=== PATIENT | female | born 1965 | race African-American/Black ===

== ENCOUNTER 2018-06-19 11:39 | Emergency (ER) | payer OTHER ==
[2018-06-19] MEDS ORDERED: FAMOTIDINE 20 MG TAB ONE (13:13)
[2018-06-19] MEDS ORDERED: METHYLPREDNISOLONE 125 MG INJ ONE (13:13)
--- NOTE | 2018-06-19 13:34 | ER ---
Nurse's Notes [facility] Name: Milli Palomares Age: 53 yrs Sex: Female : 1965 Arrival Date: 06/19/2018 Time: 11:40 Bed 13 Private MD: Diagnosis: Localized swelling, mass and lump, unspecified-upper lip Presentation: 06/19 11:51 Presenting complaint: Patient states: In the past 2 years I have had 5 episodes where la1 my upper lip swells up badly, pt states this episode started yesterday, has taken benadryl at home. airway patent, speech clear, respirations even and unlabored. Transition of care: patient was not received from another setting of care. Onset: The symptoms/episode began/occurred yesterday. Anaphylaxis evaluation, no signs or symptoms of anaphylaxis were noted. Onset of symptoms was June 19, 2018. Risk Assessment: Do you want to hurt yourself or someone else? Patient reports no desire to harm self or others. Initial Sepsis Screen: Does the patient meet any 2 criteria? No. Patient's initial sepsis screen is negative. Does the patient have a suspected source of infection? No. Patient's initial sepsis screen is negative. Care prior to arrival: None. 11:51 Method Of Arrival: Ambulatory la1 11:51 Acuity: GREGG 3 la1 11:53 Note Pt reports she has not taken her BP meds this morning and she always has high BP la1 when she is at the doctor, denies SOB, CP, DIAZ, confusion, dizziness. Historical: - Allergies: 11:52 No Known Allergies; la1 - PMHx: 11:52 Hypertension; la1 - Immunization history:: Adult Immunizations up to date. - Social history:: Smoking status: Patient/guardian denies using tobacco. - Ebola Screening: : No symptoms or risks identified at this time. Screenin:00 Abuse screen: Denies threats or abuse. Nutritional screening: No deficits noted. em Tuberculosis screening: No symptoms or risk factors identified. Fall Risk None identified. Assessment: 13:00 General: Appears in no apparent distress. comfortable, Behavior is calm, cooperative, em reports she is allergic to some medication, denies SOB. Pain: Denies pain. Neuro: Level of Consciousness is awake, alert, obeys commands, Oriented to person, place, time, situation. Cardiovascular: Heart tones S1 S2 present Capillary refill < 3 seconds Patient's skin is warm and dry. Respiratory: Airway is patent Respiratory effort is even, unlabored, Breath sounds are clear bilaterally. Denies shortness of breath labored breathing. Derm: Skin is intact, is healthy with good turgor, Skin is pink, warm \T\ dry. Musculoskeletal: Swelling present in mouth and upper lip. 13:15 Reassessment: I agree with previous assessment. hb Vital Signs: 11:52 BP 170 / 112; Pulse 103; Resp 16; Temp 97.6; Pulse Ox 98% on R/A; Weight 89.81 kg; la1 Height 5 ft. 3 in. (160.02 cm); 13:13 BP 171 / 105; Pulse 97; Resp 20; Pulse Ox 99% on R/A; Pain 0/10; em 11:52 Body Mass Index 35.07 (89.81 kg, 160.02 cm) la1 13:13 reports she has not taken her BP meds em ED Course: 11:40 Patient arrived in ED. as 11:52 Triage completed. la1 11:53 Arm band placed on right wrist. la1 12:36 Jolie Garcia FNP-C [facility]. kb 12:36 Claudy Norwood MD is Attending Physician. kb 12:44 Markus Vincent LVN is Primary Nurse. em 13:00 Patient has correct armband on for positive identification. Placed in gown. Bed in low em position. Call light in reach. Adult w/ patient. Pulse ox on. NIBP on. 13:55 No provider procedures requiring assistance completed. Patient did not have IV access em during this emergency room visit. Administered Medications: 13:10 Drug: SOLU-Medrol 125 mg Route: IM; Site: right gluteus; em 13:57 Follow up: Response: No adverse reaction em 13:10 Drug: Pepcid 20 mg Route: PO; em 13:57 Follow up: Response: No adverse reaction em Outcome: 13:33 Discharge ordered by . kb 13:55 Discharged to home ambulatory, with family. em 13:55 Condition: good 13:55 Discharge instructions given to patient, Instructed on discharge instructions, follow up and referral plans. medication usage, Demonstrated understanding of instructions, follow-up care, medications, Prescriptions given X 2. 13:58 Patient left the ED. em Signatures: Jolie Garcia, MARIANNA-C DIE CAST SUPERVISOR-Ckb Markus Vincent, LOOM INSPECTOR LOOM INSPECTOR em Laila Colin Lee RN RN la1 Joyce Rojas RN RN hb Corrections: (The following items were deleted from the chart) 13:58 13:13 BP 171 / 105; Pulse 97bpm; Resp 20bpm; Pulse Ox 99% RA; Pain 0/10; em em
--- NOTE | 2018-06-19 13:34 | EDPHYS ---
Physician Documentation [facility] Name: Milli Palomares Age: 53 yrs Sex: Female : 1965 Arrival Date: 06/19/2018 Time: 11:40 Bed 13 Private MD: ED Physician Claudy Norwood HPI: 06/19 13:26 This 53 yrs old Black Female presents to ER via Ambulatory with complaints of Lips kb Swelling, Allergic Reaction. 13:30 The patient presents with swelling of the lips. Onset: The symptoms/episode kb began/occurred yesterday. Associated signs and symptoms: Pertinent positives: swelling, Pertinent negatives: abdominal pain, Altered mental status chest pain, dysphagia, fever, headache, hives, Light headed nausea, rash, shortness of breath, Syncope vomiting. Possible causes: The patient has no known obvious cause for the symptoms. At home the patient or guardian has treated the symptoms with Benadryl. Severity of symptoms: At their worst the symptoms were moderate in the emergency department the symptoms are unchanged. The patient has experienced similar episodes in the past, several times. The patient has not recently seen a physician. Pt reports swelling to upper lip that started last night. States this has happened several times in the past and she doesn' t know what causes it. STates she normally takes benadryl and ibuprofen and it goes away, but last times she had to get a steroid shot from her PCP. Historical: - Allergies: 11:52 No Known Allergies; la1 - PMHx: 11:52 Hypertension; la1 - Immunization history:: Adult Immunizations up to date. - Social history:: Smoking status: Patient/guardian denies using tobacco. - Ebola Screening: : No symptoms or risks identified at this time. ROS: 13:25 Constitutional: Negative for fever, chills, and weight loss, Cardiovascular: Negative kb for chest pain, palpitations, and edema, Respiratory: Negative for shortness of breath, cough, wheezing, and pleuritic chest pain, Abdomen/GI: Negative for abdominal pain, nausea, vomiting, diarrhea, and constipation, MS/Extremity: Negative for injury and deformity, Neuro: Negative for headache, weakness, numbness, tingling, and seizure. 13:25 Skin: Positive for swelling, of the upper lip. Exam: 13:25 Constitutional: This is a well developed, well nourished patient who is awake, alert, kb and in no acute distress. Head/Face: Normocephalic, atraumatic. Chest/axilla: Normal chest wall appearance and motion. Nontender with no deformity. No lesions are appreciated. Cardiovascular: Regular rate and rhythm with a normal S1 and S2. No gallops, murmurs, or rubs. Normal PMI, no JVD. No pulse deficits. Respiratory: Lungs have equal breath sounds bilaterally, clear to auscultation and percussion. No rales, rhonchi or wheezes noted. No increased work of breathing, no retractions or nasal flaring. Abdomen/GI: Soft, non-tender, with normal bowel sounds. No distension or tympany. No guarding or rebound. No evidence of tenderness throughout. Back: No spinal tenderness. No costovertebral tenderness. Full range of motion. MS/ Extremity: Pulses equal, no cyanosis. Neurovascular intact. Full, normal range of motion. Neuro: Awake and alert, GCS 15, oriented to person, place, time, and situation. Cranial nerves II-XII grossly intact. Motor strength 5/5 in all extremities. Sensory grossly intact. Cerebellar exam normal. Normal gait. 13:25 Skin: Appearance: normal except for affected area, swelling, noted on the upper lip, that are moderate. Vital Signs: 11:52 BP 170 / 112; Pulse 103; Resp 16; Temp 97.6; Pulse Ox 98% on R/A; Weight 89.81 kg; la1 Height 5 ft. 3 in. (160.02 cm); 13:13 BP 171 / 105; Pulse 97; Resp 20; Pulse Ox 99% on R/A; Pain 0/10; em 11:52 Body Mass Index 35.07 (89.81 kg, 160.02 cm) la1 13:13 reports she has not taken her BP meds em MDM: 12:37 Patient medically screened. kb 13:24 Data reviewed: vital signs, nurses notes. Data interpreted: Pulse oximetry: on room air kb is 99 %. Interpretation: normal. Counseling: I had a detailed discussion with the patient and/or guardian regarding: the historical points, exam findings, and any diagnostic results supporting the discharge/admit diagnosis, the need for outpatient follow up, a family practitioner, to return to the emergency department if symptoms worsen or persist or if there are any questions or concerns that arise at home. Administered Medications: 13:10 Drug: SOLU-Medrol 125 mg Route: IM; Site: right gluteus; em 13:57 Follow up: Response: No adverse reaction em 13:10 Drug: Pepcid 20 mg Route: PO; em 13:57 Follow up: Response: No adverse reaction em Disposition: 06/19/18 13:33 Discharged to Home. Impression: Localized swelling, mass and lump, unspecified - upper lip. - Condition is Stable. - Discharge Instructions: Angioedema, [id number]. - Prescriptions for Pepcid 20 mg Oral Tablet - take 1 tablet by ORAL route every 12 hours for 5 days; 10 tablet. Prednisone 20 mg Oral Tablet - take 1 tablet by ORAL route once daily for 5 days; 5 tablet. - Medication Reconciliation Form, Thank You Letter, Antibiotic Education, Prescription Opioid Use form. - Follow up: Emergency Department; When: As needed; Reason: Worsening of condition. Follow up: Private Physician; When: 2 - 3 days; Reason: Recheck today's complaints, Continuance of care, Re-evaluation by your physician. Addendum: 06/21/2018 07:41 Co-signature as Attending Physician, Claudy Norwood MD I agree with the assessment and c nath plan of care. Signatures: Jolie Garcia, EFFICIENCY MINER BLASTING-C EFFICIENCY MINER BLASTING-Ckb Claudy Norwood MD MD cha Munoz, Edgar, UNINDENTURED APPRENTICE UNINDENTURED APPRENTICE em Baron Elizabeth RN RN la1 Corrections: (The following items were deleted from the chart) 06/19 13:34 13:33 06/19/2018 13:33 Discharged to Home. Impression: Localized swelling, mass and kb lump, unspecified - upper lip. Condition is Stable. Forms are Medication Reconciliation Form, Thank You Letter, Antibiotic Education, Prescription Opioid Use. Follow up: Emergency Department; When: As needed; Reason: Worsening of condition. Follow up: Private Physician; When: 2 - 3 days; Reason: Recheck today's complaints, Continuance of care, Re-evaluation by your physician. kb 13:58 13:34 06/19/2018 13:33 Discharged to Home. Impression: Localized swelling, mass and em lump, unspecified - upper lip. Condition is Stable. Discharge Instructions: Angioedema, [id number]. Forms are Medication Reconciliation Form, Thank You Letter, Antibiotic Education, Prescription Opioid Use. Follow up: Emergency Department; When: As needed; Reason: Worsening of condition. Follow up: Private Physician; When: 2 - 3 days; Reason: Recheck today's complaints, Continuance of care, Re-evaluation by your physician. kb
== END 2018-06-19 13:58 | disposition home or self-care (01) ==
LOC: ER 11:39
DX: R22.9 Localized swelling, mass and lump, unspecified (principal); I10 Essential (primary) hypertension
CPT/HCPCS: 96372; 99283; J2930

== ENCOUNTER 2023-07-06 12:52 | Emergency (ER) | payer OTHER ==
--- OUTSIDE RECORDS SUMMARY | 2023-07-06 12:55 | XMS REPORT | Clinical Summary ---
Author Name Unknown Organization [facility] [place] Address [address] [place] [address] Care Team Providers Care Maintenance Inspector Name Role Phone Rudy López MD Unavailable [phone] Simone Colon MD Unavailable + [phone] Gabriele Yoder Unavailable Social History Tobacco Use Types Packs/Day Years Used Date Smoking Tobacco: Never Assessed Sex and Gender Information Value Date Recorded Sex Assigned at Not on file Gender Identity Not on file Sexual Orientation Not on file Job Start Date Occupation Industry Not on file Not on file Not on file Plan of Treatment Not on file Care Teams Maintenance Inspector Relationship Specialty Start Date End Date Rudy López MD [address] [facility] [address] [place] [address] PCP - External Referring Hematology and Oncology 04/22/21 Simone Colon MD [facility] [address] [id number] PCP - External Primary Care Provider Family Practice 04/22/21 Gabriele Yoder [address] [place] [address] , [place] [address] PCP - External Follow Up B Nephrology 04/22/21
[2023-07-06] MEDS ORDERED: ONDANSETRON 4 MG/2 ML VIAL ONE (14:34)
[2023-07-06] MEDS ORDERED: FLEET ENEMA ADULT PR ONE (14:35)
[2023-07-06 15:10] LABS: Absolute Eosinophils 0.2 K/uL (0-0.5); Absolute Monocytes 0.7 K/uL (0.1-1.3); Basophils % 0.5 % (0-1.3); Eosinophils % 2.4 % (0-4.4); Hematocrit 26.8 % (36.0-45.0); Hemoglobin 8.2 g/dL (12.0-15.0); Lymphocytes % 13.8 % (15.3-44.8); MCH 24.8 pg (27.0-35.0); MCHC 30.4 g/dL (32.0-36.0); MCV 81.7 fL (80-100); MPV 7.6 fL (7.6-11.3); Monocytes % 10.8 % (3.3-12.3); Neutrophils % 72.5 % (41.7-73.7); Nucleated Red Blood Cells % 0.1 % (0-0); Platelets 250 thou/uL (152-406); RBC Red Blood Cell Count 3.28 M/uL (3.86-4.86); Red Cell Distribution Width 18.8 % (12.1-15.2)
[2023-07-06 15:25] LABS: Albumin 2.9 g/dL (3.4-5.0); Albumin/Globulin Ratio 0.6 (1.1-1.8); Anion Gap 10.3 mEq/L (5.0-15.0); Bilirubin Total 0.7 mg/dL (0.2-1.0); Potassium 4.3 mEq/L (3.5-5.1); Protein, Total 7.9 g/dL (6.4-8.2)
--- NOTE | 2023-07-06 16:08 | RAD REPORT ---
EXAM DESCRIPTION: CT - Abdomen Pelvis Wo Contrast - 07/06/2023 4:00 pm CLINICAL HISTORY: Abdominal pain. Abd pain;Constipation COMPARISON: No comparisons TECHNIQUE: CT imaging of the abdomen and pelvis was performed without contrast. Solid organ, bowel a nd vascular assessment is limited due to lack of IV and oral contrast. All CT scans are performed using dose optimization technique as appropriate and may include automated exposure control or mA/KV adjustment according to patient size. FINDINGS: The lower lung cook are clear. There are multiple large masses in the abdomen. The mass is superior to also be within the liver pare nchyma or significantly compressing the liver parenchyma. This large and mass appears to have cystic or necrotic internal components and measures 27 x 21 centimeters. No bowel obstruction.No gross solid organ findings although internal anatomy distorted. IMPRESSION: Very large almost 30 centimeter mass in the abdomen superiorly nonspecific but likely ma lignancy. There is some suggestion of the mass highly compressing or invading the right lobe of the l iver. A limited non-contrast examination was performed as detailed.
--- NOTE | 2023-07-06 17:35 | ER ---
Nurse's Notes [facility] Name: Milli Palomares Age: 58 yrs Sex: Female : 1965 Arrival Date: 07/06/2023 Time: 12:52 Bed 18 Private MD: Diagnosis: Abdominal tumor;Anemia, unspecified Presentation: 07/05 13:19 Chief complaint: Patient states: has acid reflux, indigestion, back pain. Has taken ko1 miralax, exlax, lactulose, and hasnt had a BM since last thursday. Coronavirus screen: At this time, the client does not indicate any symptoms associated with coronavirus-19. Ebola Screen: No symptoms or risks identified at this time. Initial Sepsis Screen: Does the patient meet any 2 criteria? No. Patient's initial sepsis screen is negative. Does the patient have a suspected source of infection? No. Patient's initial sepsis screen is negative. Risk Assessment: Do you want to hurt yourself or someone else? Patient reports no desire to harm self or others. Onset of symptoms is unknown. 13:19 Method Of Arrival: Ambulatory ko1 13:19 Acuity: GREGG 4 ko1 Triage Assessment: 13:24 General: Appears in no apparent distress. Behavior is calm, cooperative, appropriate ko1 for age. Pain: Complains of pain in abdomen. GI: Reports lower abdominal pain, constipation. Historical: - PMHx: 13:24 Hypertension; ko1 - Immunization history:: Adult Immunizations unknown. - Infectious Disease History:: Denies. - Social history:: Smoking status: Patient denies any tobacco usage or history of. Screenin:25 [facility] ED Fall Risk Assessment (Adult) History of falling in the last 3 months, ph including since admission No falls in past 3 months (0 pts). Abuse screen: Denies threats or abuse. Denies injuries from another. Nutritional screening: No deficits noted. Tuberculosis screening: No symptoms or risk factors identified. Assessment: 14:30 General: Appears in no apparent distress. Behavior is calm, cooperative. Pain: ph Complains of pain in back. Neuro: Level of Consciousness is awake, alert, obeys commands, Oriented to person, place, time, situation. Cardiovascular: Capillary refill < 3 seconds in bilateral fingers. Respiratory: Airway is patent Respiratory effort is even, unlabored. GI: Reports constipation, nausea. Derm: Skin is pink, warm \T\ dry. 16:50 Reassessment: Called Dr. Mike Brown at [phone], pt's oncologist, staff aa5 states he will call back to speak to Dr. Stanford. . 18:00 Reassessment: D/C pending disc of CT for pt to take to oncologist. ph Vital Signs: 13:19 BP 129 / 87; Pulse 102; Resp 18; Temp 97; Pulse Ox 100% ; ko1 16:29 BP 122 / 86; Pulse 94; Resp 18; Pulse Ox 99% on R/A; ph 18:00 BP 118 / 72; Pulse 81; Resp 18; Temp 97.9; Pulse Ox 100% on R/A; ph ED Course: 12:55 Patient arrived in ED. mg5 13:09 Dewayne Stanford DO is Attending Physician. ms3 13:24 Triage completed. ko1 13:24 Arm band placed on right wrist. Patient placed in waiting room, Patient notified of ko1 wait time. 13:47 Alma Andrade, RN is Primary Nurse. ph 14:50 Inserted saline lock: 20 gauge in right antecubital area, using aseptic technique. rs5 Blood collected. 16:02 Abdomen In Process Unspecified. EDMS 16:29 Patient has correct armband on for positive identification. Bed in low position. Call ph light in reach. Side rails up X 1. 18:15 No provider procedures requiring assistance completed. IV discontinued, intact, ph bleeding controlled, No redness/swelling at site. Pressure dressing applied. Administered Medications: 15:04 Drug: Ondansetron IVP 4 mg IVP once; over 2 minutes Route: IVP; Site: left antecubital; rs5 15:30 Follow up: Response: No adverse reaction ph 19:15 Not Given (Other Intervention Used): fleet [id number] ml WI once; may repeat once ph Medication: 15:25 VIS not applicable for this client. ph Outcome: 17:34 Discharge ordered by . ms3 19:05 Patient left the ED. ph 19:05 Discharged to home ambulatory, with significant other, ph 19:05 Condition: good 19:05 Discharge instructions given to patient, significant other, Instructed on discharge instructions, follow up and referral plans. Demonstrated understanding of instructions, follow-up care, Signatures: Dispatcher [employer] Danette Raymundo, RN RN aa5 Alma Andrade RN RN Dewayne Stanford, DO CORRALES ms3 Tawana Borja RN RN ko1 Christian Hayes RN RN rs5 Esther Ge 5
--- NOTE | 2023-07-06 17:35 | EDPHYS ---
Physician Documentation [facility] Name: Milli Palomares Age: 58 yrs Sex: Female : 1965 Arrival Date: 07/06/2023 Time: 12:52 Bed 18 Private MD: ED Physician Dewayne Stanford HPI: 07/05 15:34 This 58 yrs old Black Female presents to ER via Ambulatory with complaints of ms3 Constipation, Pain. 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 emergency department for no bowel movement for 5 days. Patient states she has taken Ex-Lax, MiraLAX, lactulose without a bowel movement. Patient endorses lower abdominal pain over the last 5 days as well. Patient states her discomfort is an 8/10. Historical: - PMHx: 13:24 Hypertension; ko1 - Immunization history:: Adult Immunizations unknown. - Infectious Disease History:: Denies. - Social history:: Smoking status: Patient denies any tobacco usage or history of. ROS: 15:36 Constitutional: Negative for fever, and chills. Cardiovascular: Negative for chest ms3 pain, and palpitations. Respiratory: Negative for shortness of breath, cough, wheezing, and pleuritic chest pain, 15:36 MS/Extremity: Negative for injury and deformity, Skin: Negative for injury, rash, and discoloration, 15:36 Abdomen/GI: Positive for abdominal pain, constipation, Exam: 15:36 Constitutional: This is a well developed, well nourished patient who is awake, alert, ms3 and in no acute distress. Neck: Trachea midline, no cervical lymphadenopathy. Supple, full range of motion without nuchal rigidity, or vertebral point tenderness. No Meningismus. Chest/axilla: Normal chest wall appearance and motion. Nontender with no deformity. Cardiovascular: Regular rate and rhythm with a normal S1 and S2. No gallops, murmurs, or rubs. Normal PMI, no JVD. No pulse deficits. Respiratory: Lungs have equal breath sounds bilaterally, clear to auscultation and percussion. No rales, rhonchi or wheezes noted. No increased work of breathing, no retractions or nasal flaring. Abdomen/GI: Soft, non-tender, with normal bowel sounds. No distension or tympany. No guarding or rebound. No evidence of tenderness throughout. Skin: Warm, dry with normal turgor. Normal color with no rashes, no lesions, and no evidence of cellulitis. MS/ Extremity: Pulses equal, no cyanosis. Neurovascular intact. Full, normal range of motion. Vital Signs: 13:19 BP 129 / 87; Pulse 102; Resp 18; Temp 97; Pulse Ox 100% ; ko1 16:29 BP 122 / 86; Pulse 94; Resp 18; Pulse Ox 99% on R/A; ph 18:00 BP 118 / 72; Pulse 81; Resp 18; Temp 97.9; Pulse Ox 100% on R/A; ph MDM: 13:27 Patient medically screened. ms3 15:36 Differential diagnosis: diverticulitis, non-specific abd pain, Constipation. ms3 17:35 Data reviewed: vital signs, nurses notes, lab test result(s), radiologic studies, and ms3 as a result, I will discharge patient. Consideration of Admission/Observation Discussed transfer with patient. Patient states she has a known large tumor and is able to tolerate po at this time.. Independent interpretation of the following test(s) in the Emergency Department CT Scan: My interpretation is CT scan images reviewed do not reveal constipation. Large tumor abutting liver present.. Historians other than the Patient: Spouse/Significant Other: Patient's . 17:41 Care significantly affected by the following chronic conditions: Hypertension, GIST. ED ms3 course: Dr Trevor Villafuerte pageradhika. Discussed transfer with patient and patient states she is comfortable being discharged home. Patient is tolerating p.o. at this time, alert and orient x 4, no apparent distress, nontoxic-appearing, speaking full sentences. Patient to follow-up with Dr. Villafuerte as in 1 to 2 days. Patient understands and agrees with plan. All questions were answered. Return precautions discussed include worsening symptoms, or any other concerns.. 07/05 13:27 Order name: CBC with Diff; Complete Time: 15:34 ms3 07/05 13:27 Order name: CMP; Complete Time: 15:34 ms3 07/05 13:27 Order name: Lipase; Complete Time: 15:34 ms3 07/05 15:51 Order name: Abdomen ; Complete Time: 16:31 EDMS 07/05 13:27 Order name: IV Saline Lock; Complete Time: 15:39 ms3 07/05 13:27 Order name: Labs collected and sent; Complete Time: 15:39 ms3 Administered Medications: 15:04 Drug: Ondansetron IVP 4 mg IVP once; over 2 minutes Route: IVP; Site: left antecubital; rs5 15:30 Follow up: Response: No adverse reaction ph 19:15 Not Given (Other Intervention Used): fleet [id number] ml [place] once; may repeat once ph Disposition Summary: 07/06/23 17:34 Discharge Ordered Notes: Location: Home ms3 Condition: Stable ms3 Diagnosis - Abdominal tumor ms3 - Anemia, unspecified ms3 Followup: ms3 - With: Private Physician - When: 1 - 2 days - Reason: Recheck today's complaints Discharge Instructions: - Discharge Summary Sheet ms3 - Anemia ms3 Forms: - Medication Reconciliation Form ms3 - Antibiotic Education ms3 - Prescription Opioid Use ms3 - Patient Portal Instructions ms3 - Leadership Thank You Letter ms3 Signatures: Dispatcher [employer] EDDewayne Benjamin DO DO ms3 Tawana Borja, RN RN ko1 Christian Hayes RN RN rs5 Alma Andrade RN ph Corrections: (The following items were deleted from the chart) 15:51 13:28 Abdomen Pelvis W Con+CT.RAD.BRZ ordered. EDMS EDMS
[2023-07-06 19:25] VITALS: TEMP 97
[2023-07-06 19:56] VITALS: BP 122/86; O2SAT 99
== END 2023-07-06 19:05 | disposition home or self-care (01) ==
LOC: ER 12:52
DX: R19.09 Other intra-abdominal and pelvic swelling, mass and lump (principal); D64.9 Anemia, unspecified; I10 Essential (primary) hypertension
CPT/HCPCS: 85025; 36415; 83690; 80053; 74176; 96374; 99284; J2405